=== PATIENT | female | born 1995 | race Caucasian/White ===

== ENCOUNTER 2019-09-13 15:59 | Outpatient (CLI) | payer OTHER, SELFPAY ==
[2019-09-13 17:14] LABS: HCG Quant, Pregnancy < 1 mIU/mL (1-3)
== END 2019-09-13 16:19 ==
PROVIDERS: PCP Family Medicine; Visit Provider Nurse Practitioner Family
DX: N92.6 Irregular menstruation, unspecified (principal)
CPT/HCPCS: 36415; 84702

== ENCOUNTER 2019-09-13 17:33 | Outpatient (REF) | payer OTHER, SELFPAY ==
--- NOTE | 2019-09-13 15:45 | PAPFT_PTH ---
PATIENT: Carlyn Stout LOC: [facility] U#:[id number] AGE/SX: 23/F ROOM: RE09/13/[address]: IVON Pritchett : 1995 BED: DIS: 09/13/2019 SPEC #: [id number] RECD: 09/13/19 18:06 STATUS: JAYANT REQ #: [id number] DARIUS: 09/13/19 15:[address]: An Escalante DEPT: [facility] Cytology RECD BY: Karolina Pickard ENTERED: 09/13/19 18:06 SP TYPE: PAPFT OTHR DR: Jordan Cote Tissues: 1 - CX/ENDOCX FOR PAP SMEARS Procedures: PAP THIN PREP/[facility] Screening Comments: [id number]
[2019-09-15 13:09] LABS: Chlamydia Result Negative (Negative); GC Result Negative (Negative)
== END 2019-09-13 17:53 ==
LOC: LBN 17:33
PROVIDERS: PCP Family Medicine; Visit Provider Nurse Practitioner Family
DX: Z11.3 Encounter for screening for infections with a predominantly sexual mode of transmission (principal); Z12.4 Encounter for screening for malignant neoplasm of cervix
CPT/HCPCS: 87491; 87591; 88142

== ENCOUNTER 2019-10-01 01:56 | Outpatient (CLI) | payer OTHER, SELFPAY ==
--- NOTE | 2019-10-01 07:54 | DI.US_ITS ---
EXAM: US PELVIS TRANSVAGINAL CLINICAL HISTORY: Enlarged uterus on exam 8-10 weeks Pt has IUD,hypertrophy of uterus, TECHNIQUE: Ultrasound performed using standard protocol. Transabdominal and transvaginal exams wer e performed. COMPARISON: No exams were available for comparison FINDINGS: An IUD is seen appropriately positioned within the endometrium. The uterus measures 8.5 x 3.5 x 5.3 cm. No fibroids are seen. The ovaries are normal in size and appearance. No cyst or mass is seen. There is no evidence of torsion. There is a small amount of free fluid in the cul-de-sac and adjac ent to the right ovary. The kidneys appear normal. The bladder is unremarkable. IMPRESSION: Free fluid in the cul-de-sac may be physiologic. The IUD is appropriately positioned within the en dometrium.
== END 2019-10-01 02:16 ==
PROVIDERS: PCP Family Medicine; Visit Provider Nurse Practitioner Family
DX: M85.2 Hyperostosis of skull (principal); Z97.5 Presence of (intrauterine) contraceptive device
CPT/HCPCS: 76830; 76856

== ENCOUNTER 2020-09-29 09:16 | Outpatient (REF) | payer OTHER, SELFPAY ==
--- NOTE | 2020-09-29 | PAPFT_PTH ---
PATIENT: Carlyn Stout LOC: [facility] U#:[id number] AGE/SX: 24/F ROOM: RE09/29/[address]: IVON rPitchett : 1995 BED: DIS: 09/29/2020 SPEC #: [id number] RECD: 09/29/20 13:03 STATUS: JAYANT REJony #: [id number] DARIUS: 09/29/20 00:[address]: An Escalante DEPT: [facility] Cytology RECD BY: Karolina Pickard ENTERED: 09/29/20 13:04 SP TYPE: PAPFT GENI DR: Jordan Cote Tissues: 1 - CX/ENDOCX FOR PAP SMEARS Procedures: PAP THIN PREP/[facility] Screening Comments: [id number]
== END 2020-09-29 09:36 ==
LOC: LBN 09:16
PROVIDERS: PCP Family Medicine; Visit Provider Nurse Practitioner Family
DX: Z12.4 Encounter for screening for malignant neoplasm of cervix (principal)
CPT/HCPCS: 88142

== ENCOUNTER 2022-01-10 16:02 | Outpatient (REF) | payer BC, SELFPAY ==
--- NOTE | 2022-01-10 15:00 | PAPFT_PTH ---
PATIENT: Carlyn Stout LOC: [facility] U#:[id number] AGE/SX: 26/F ROOM: RE01/10/[address]: IVON Pritchett : 1995 BED: DIS: 01/10/2022 SPEC #: [id number] RECD: 01/10/22 17:42 STATUS: JAYANT REJony #: [id number] DARIUS: 01/10/22 15:[address]: nA Escalante DEPT: [facility] Cytology RECD BY: Karolina Pickard ENTERED: 01/10/22 17:42 SP TYPE: PAPFT OTHR DR: Jordan Cote Tissues: 1 - CX/ENDOCX FOR PAP SMEARS Procedures: PAP THIN PREP/[facility] Screening Comments: [id number]
== END 2022-01-10 16:03 | disposition home or self-care (01) ==
LOC: LBN 16:02
PROVIDERS: PCP Family Medicine; Visit Provider Nurse Practitioner Family
DX: Z12.4 Encounter for screening for malignant neoplasm of cervix (principal)
CPT/HCPCS: 88142